=== PATIENT | female | born 1935 | race Caucasian/White ===

== ENCOUNTER → 2016-10-30 | Outpatient (CLI) | payer MEDICARE, OTHER ==
[~2016-10-30] MED LIST: ALAW0.02 OU; AMIT25TA PO; BREO1INH INH; CALC-170 PO; CENTTAB47 PO; CLAR10CA3 PO; CLAR1TAB2 PO; ECOT81TA5 PO; LOSA100T8 PO; METO1TAB32 PO; OMEP40CA2 PO; PILO7.5T3 PO; SIMV40TA2 PO; SYST0.4D2 OU
--- NOTE | 2016-10-30 10:07 | REP ---
CAROTID DUPLEX ULTRASOUND: 10/30/2016 COMPARISON. 08/18/2011 CLINICAL HISTORY: Carotid stenosis. Standard duplex techniques were utilized to evaluate the carotid systems bilaterally. There is only minimal intimal thickening in the right common carotid artery and some anterior and posterior plaque at the bulb and into the proximal ICA and ECA noted, but mild. The left common carotid also shows some intimal thickening with anterior and posterior plaque at the bulb and extending into the ICA and ECA with both calcific and soft plaque noted. Peak Velocities: RIGHT LEFT CCA systolic 0.86 0.85 m/s ICA systolic 0.95 0.60 m/s ICA diastolic 0.25 0.18 m/s ECA systolic 1.05 0.94 m/s IC/CC ratio 1.10 0.70. Cranial direction of flow is seen in both vertebral arteries. The Doppler waveform analysis shows no significant spectral broadening or filling in of the systolic window. IMPRESSION: 1. Bilateral moderate carotid disease, less than 50% stenosis in the proximal right and left ICA. Soft and calcific plaque identified at the bulb, proximal ICA. Significant progression. No hemodynamically significant or flow restricting lesion. 2. Cranial direction of flow vertebral arteries. Signed by Pasquale Rodriguez MD 10/30/2016 03:50 P
== END ==
LOC: M RAD 08:22
PROVIDERS: ATTEND Surgery
DX: I65.23 Occlusion and stenosis of bilateral carotid arteries (principal)

== ENCOUNTER 2016-11-05 10:21 | Outpatient (CLI) | payer MEDICARE, OTHER ==
[~2016-11-05] VITALS: Ht 167.6 cm; Wt 76.2 kg
[~2016-11-05 10:21] MED LIST changes: +NS 1,000 ML IV ONE
[2016-11-05] MEDS ORDERED: PROPOFOL 200 MG/20 ML VIAL As Ordered ONE ×2 (11:41→12:06)
[2016-11-05] MEDS ORDERED: LIDOCAINE 2% INJ 100 MG/5 ML SDV (FOR ANES.) As Ordered ONE (11:41)
--- NOTE | 2016-11-05 12:11 | ROOR ---
Patient Name: Leona Veronica Procedure Date: 11/05/2016 11:38 AM Date of : 1935 Age: 81 Room: [facility] Gender: Female Note Status: Finalized Procedure: Colonoscopy Indications: High risk colon cancer surveillance: Personal history of colonic polyps Providers: South Malave Jr, MD Referring MD: CANDICE HUTCHISON MD Requesting Provider: Medicines: Propofol per Anesthesia Complications: No immediate complications. Procedure: Pre-Anesthesia Assessment: - Prior to the procedure, a History and Physical was performed, and patient medications and allergies were reviewed. The patient is competent. The risks and benefits of the procedure and the sedation options and risks were discussed with the patient. All questions were answered and informed consent was obtained. Patient identification and proposed procedure were verified by the physician and the nurse in the pre-procedure area and in the procedure room. Mental Status Examination: alert and oriented. Airway Examination: normal oropharyngeal airway and neck mobility. Respiratory Examination: clear to auscultation. CV Examination: normal. ASA Grade Assessment: II - A patient with mild systemic disease. After reviewing the risks and benefits, the patient was deemed in satisfactory condition to undergo the procedure. The anesthesia plan was to use moderate sedation / analgesia (conscious sedation). Immediately prior to administration of medications, the patient was re-assessed for adequacy to receive sedatives. The heart rate, respiratory rate, oxygen saturations, blood pressure, adequacy of pulmonary ventilation, and response to care were monitored throughout the procedure. The physical status of the patient was re-assessed after the procedure. The Colonoscope was introduced through the anus and advanced to the cecum, identified by appendiceal orifice and ileocecal valve. The colonoscopy was performed without difficulty. The patient tolerated the procedure well. The quality of the bowel preparation was fair. Findings: The perianal exam findings include non-thrombosed external hemorrhoids and non-thrombosed internal hemorrhoids. Many small and large-mouthed diverticula were found in the sigmoid colon. Three sessile polyps were found in the sigmoid colon, descending colon and transverse colon. The polyps were small in size. The rectum, recto-sigmoid colon, ascending colon and cecum appeared normal. Impression: - Preparation of the colon was fair. - Non-thrombosed external hemorrhoids and non-thrombosed internal hemorrhoids found on perianal exam. - Diverticulosis in the sigmoid colon. - Three small polyps in the sigmoid colon, in the descending colon and in the transverse colon. - The rectum, recto-sigmoid colon, ascending colon and cecum are normal. - No specimens collected. Recommendation: - Discharge patient to home (ambulatory). - Repeat colonoscopy in 5 years for surveillance. South Malave MD South Malave Jr, MD 11/05/2016 12:11:11 PM This report has been signed electronically. Number of Addenda: 0 Note Initiated On: 11/05/2016 11:38 AM Estimated Blood Loss: Estimated blood loss: none.
[2016-11-05 12:35] VITALS: BP 135/67
== END 2016-11-05 12:51 | disposition home or self-care (01) ==
LOC: M OPP 10:21
PROVIDERS: ATTEND Surgery
DX: Z12.11 Encounter for screening for malignant neoplasm of colon (principal); Z86.010 Personal history of colon polyps; D12.5 Benign neoplasm of sigmoid colon; D12.4 Benign neoplasm of descending colon; D12.3 Benign neoplasm of transverse colon; K64.4 Residual hemorrhoidal skin tags; K64.8 Other hemorrhoids; K57.30 Diverticulosis of large intestine without perforation or abscess without bleeding; I10 Essential (primary) hypertension; E78.5 Hyperlipidemia, unspecified; M35.00 Sjogren syndrome, unspecified; R21 Rash and other nonspecific skin eruption; J45.909 Unspecified asthma, uncomplicated; M19.90 Unspecified osteoarthritis, unspecified site; I65.23 Occlusion and stenosis of bilateral carotid arteries; G47.00 Insomnia, unspecified; Z96.652 Presence of left artificial knee joint; Z79.899 Other long term (current) drug therapy; Z80.0 Family history of malignant neoplasm of digestive organs; Z80.52 Family history of malignant neoplasm of bladder; Z80.1 Family history of malignant neoplasm of trachea, bronchus and lung; Z80.42 Family history of malignant neoplasm of prostate

== ENCOUNTER → 2019-10-06 | Outpatient (CLI) | payer MEDICARE, OTHER ==
[~2019-10-06] MED LIST changes: -CALC-170 PO; +CALC1TAB27 PO; -NS 1,000 ML IV ONE; -OMEP40CA2 PO; +OMEP40CA97 PO; -SIMV40TA2 PO; +SIMV40TA20 PO
--- NOTE | 2019-10-13 15:14 | REP ---
BILATERAL CAROTID DUPLEX ULTRASOUND Delay in reporting results from hospital computer malfunction from malware. FINDINGS: There is moderate atheromatous plaque in the bulbs bilaterally. PEAK FLOW VELOCITY ANALYSIS RIGHT LEFT Peak ICA velocity 83.8 cm/s 75.1 cm/s Diastolic ICA velocity 20.6 cm/s 18.6 cm/s ICA/CCA ratio 0.87 0.93 Peak ECA flow velocity 101.4 cm/s 82.6 cm/s Peak CCA flow velocity 96.3 cm/s 80.8 cm/s Peak flow velocities are normal bilaterally. There is no significant stenosis on the right or the left. There is antegrade flow in the vertebral arteries bilaterally. MTDD
== END ==
LOC: M RAD 13:21
PROVIDERS: ATTEND Internal Medicine
DX: I65.8 Occlusion and stenosis of other precerebral arteries (principal)

== ENCOUNTER 2021-06-24 17:43 | Inpatient (IN) | payer MEDICARE, OTHER ==
[~2021-06-24] VITALS: Ht 167.6 cm; Wt 66.5 kg
[~2021-06-24 17:43] MED LIST changes: -AMIT25TA PO; +AMIT25TA17 PO; +OMEP40CA4 PO; -OMEP40CA97 PO
[2021-06-24] MEDS ORDERED: ACETAMINOPHEN 650 MG SUPP PR ONE (18:10)
[2021-06-24 19:18] LABS: ALBUMIN 2.7 GM/DL (3.2-5.2); BILIRUBIN,DIRECT 0.1 MG/DL (0.0-0.2); BILIRUBIN,TOTAL 0.3 MG/DL (0.2-1.0); CREATININE FOR GFR 1.05 MG/DL (0.55-1.30); POTASSIUM SERUM 2.9 MEQ/L (3.5-5.1); TOTAL PROTEIN 6.3 GM/DL (6.4-8.2)
[2021-06-24 19:32] LABS: BASO % 0.1 % (0.0-1.0); EOS % 0.3 % (0.0-3.0); HEMATOCRIT 31.2 % (36.0-47.0); HEMOGLOBIN 10.7 g/dl (12.0-15.5); LYMPH # 0.4 10^3/uL (1.5-5.0); LYMPH % 4.2 % (24.0-44.0); MEAN CORPUSCULAR HEMOGLOBIN 30.7 pg (27.0-33.0); MEAN CORPUSCULAR HGB CONC 34.3 g/dl (32.0-36.5); MEAN CORPUSCULAR VOLUME 89.4 fl (80.0-96.0); MONO # 0.7 10^3/uL (0.0-0.8); MONO % 7.5 % (2.0-8.0); NEUTROPHILS # 8.1 10^3/uL (1.5-8.5); NEUTROPHILS % 87.4 % (36.0-66.0); PLATELET COUNT, AUTOMATED 188 10^3/uL (150-450); RED BLOOD COUNT 3.49 10^6/uL (4.00-5.40); WHITE BLOOD COUNT 9.3 10^3/uL (4.0-10.0)
[2021-06-24] MEDS ORDERED: IBUPROFEN 600MG TAB PO ONE (21:00)
[2021-06-24] MEDS ORDERED: ISOVUE-370 76% 100ML VIAL As Ordered ONE (21:49)
[2021-06-24] MEDS ORDERED: cefTRIAXone SOD 1 GM in D5W MINI-BAG PLUS 50 ML IV ONE (23:30)
[2021-06-24] MEDS ORDERED: NS 1,000 ML IV SCH (23:35)
[2021-06-24] MEDS ORDERED: ACETAMINOPHEN *IV* 1,000 MG in IV 1 EA IV ONE (23:35)
[2021-06-24] MEDS ORDERED: MAALOX 30 ML SUSP *UDC PO PRN (23:35)
[2021-06-24] MEDS ORDERED: MOM 30ML SUSPENSION UDC PO PRN (23:35)
[2021-06-24] MEDS ORDERED: IBUPROFEN 600MG TAB PO PRN (23:50)
[2021-06-25] VITALS (17 sets, daily range): BP systolic 88–140; BP diastolic 41–65; O2SAT 93–98
[2021-06-25 00:52] LABS: INR 0.99; PROTHROMBIN TIME 13.5 SECONDS (12.7-14.5)
[2021-06-25 00:53] LABS: PARTIAL THROMBOPLASTIN TIME 32.2 SECONDS (25.9-37.0)
[2021-06-25] MEDS: KCL 40MEQ in NS 1000ML 1,000 ML IV SCH ×2 (01:43→10:18)
[2021-06-25] MEDS ORDERED: NS 1,000 ML IV ONE (03:35)
[2021-06-25 05:07] LABS: HEMATOCRIT 36.2 % (36.0-47.0); HEMOGLOBIN 12.4 g/dl (12.0-15.5); MEAN CORPUSCULAR HGB CONC 34.3 g/dl (32.0-36.5); MEAN CORPUSCULAR VOLUME 90.5 fl (80.0-96.0); PLATELET COUNT, AUTOMATED 219 10^3/uL (150-450); WHITE BLOOD COUNT 12.1 10^3/uL (4.0-10.0)
[2021-06-25 05:29] LABS: CALCIUM LEVEL 8.1 MG/DL (8.8-10.2); CREATININE FOR GFR 1.17 MG/DL (0.55-1.30); GLOMERULAR FILTRATION RATE 46.8 (>32); MAGNESIUM LEVEL 2.1 MG/DL (1.8-2.4); POTASSIUM SERUM 3.3 MEQ/L (3.5-5.1)
[2021-06-25] MEDS: OSELTAMIVIR PHOSPHATE 30MG CAPSULE PO SCH ×2 (08:00→20:34)
[2021-06-25] MEDS ORDERED: OSELTAMIVIR PHOSPHATE 75 MG CAP (TAMIFLU) PO SCH (09:00)
[2021-06-25] MEDS ORDERED: LOSA100T5 PO (09:22)
[2021-06-25] MEDS ORDERED: ACET650T15 PO (09:22)
[2021-06-25] MEDS ORDERED: SIMV20TA22 PO (09:22)
[2021-06-25] MEDS ORDERED: REFR0.5D8 OU (09:22)
[2021-06-25] MEDS ORDERED: D200CAP2 PO (09:22)
[2021-06-25] MEDS ORDERED: POTA10TA17 PO (09:22)
[2021-06-25] MEDS ORDERED: OMEP-173 PO (09:22)
[2021-06-25] MEDS ORDERED: CALC-211 PO (09:22)
[2021-06-25] MEDS ORDERED: SALA1TAB PO (09:22)
[2021-06-25] MEDS ORDERED: CENT1TAB PO (09:22)
[2021-06-25] MEDS ORDERED: PRED25TA PO (09:22)
[2021-06-25] MEDS ORDERED: HOME MED LIST COMPLETE! XX SCH (09:25)
[2021-06-25] MEDS: ENOXAPARIN 40MG/0.4ML SYRINGE (J1650 PER 10MG) SC SCH (10:18)
[2021-06-25] MEDS: ACETAMINOPHEN TAB 650MG DOSE (2X325MG) PO PRN (15:53)
[2021-06-25] MEDS: ADVAIR HFA 115/21MCG INHALER INH SCH ×2 (18:13→19:33)
[2021-06-25] MEDS: SIMVASTATIN 20 MG TAB PO SCH (20:34)
[2021-06-25] MEDS: cefTRIAXone SOD 1 GM in D5W MINI-BAG PLUS 50 ML IV SCH (20:34)
[2021-06-25] MEDS: ASPIRIN 81MG ENTERIC TABLET PO SCH (20:34)
[2021-06-26] VITALS (8 sets, daily range): BP systolic 119–130; BP diastolic 59–69; O2SAT 92–96
[2021-06-26] MEDS: ACETAMINOPHEN TAB 650MG DOSE (2X325MG) PO PRN ×3 (02:44→16:16)
[2021-06-26 05:13] LABS: HEMATOCRIT 29.2 % (36.0-47.0); MEAN CORPUSCULAR HEMOGLOBIN 29.8 pg (27.0-33.0); MEAN CORPUSCULAR HGB CONC 34.2 g/dl (32.0-36.5); MEAN CORPUSCULAR VOLUME 86.9 fl (80.0-96.0); PLATELET COUNT, AUTOMATED 181 10^3/uL (150-450); RED BLOOD COUNT 3.36 10^6/uL (4.00-5.40); WHITE BLOOD COUNT 11.7 10^3/uL (4.0-10.0)
[2021-06-26 05:30] LABS: BLOOD UREA NITROGEN 15 MG/DL (7-18); CALCIUM LEVEL 7.5 MG/DL (8.8-10.2); CARBON DIOXIDE LEVEL 25 MEQ/L (21-32); CHLORIDE LEVEL 109 MEQ/L (98-107); CREATININE FOR GFR 0.89 MG/DL (0.55-1.30); GLOMERULAR FILTRATION RATE > 60.0 (>32); GLUCOSE, FASTING 98 MG/DL (70-100); MAGNESIUM LEVEL 1.7 MG/DL (1.8-2.4); POTASSIUM SERUM 3.1 MEQ/L (3.5-5.1); SODIUM LEVEL 140 MEQ/L (136-145)
[2021-06-26] MEDS ORDERED: MAG SULF 1GM/100ML (MAG RUN) 1 GM in IV 1 EA IV ONE (06:50)
[2021-06-26] MEDS ORDERED: POTASSIUM CHLORIDE 10MEQ SR TABLET PO ONE (06:50)
[2021-06-26] MEDS: ADVAIR HFA 115/21MCG INHALER INH SCH ×2 (07:38→19:14)
[2021-06-26] MEDS: METOPROLOL SUCC *XL* 25MG TAB (TopROL *XL*) PO SCH (08:46)
[2021-06-26] MEDS: ENOXAPARIN 40MG/0.4ML SYRINGE (J1650 PER 10MG) SC SCH (08:52)
[2021-06-26] MEDS: OMEPRAZOLE 20MG CAP PO SCH (08:52)
[2021-06-26] MEDS: LORATADINE 10 MG TAB PO SCH (08:52)
[2021-06-26] MEDS: OSELTAMIVIR PHOSPHATE 30MG CAPSULE PO SCH ×2 (08:52→20:06)
[2021-06-26] MEDS: ASPIRIN 81MG ENTERIC TABLET PO SCH (20:06)
[2021-06-26] MEDS: SIMVASTATIN 20 MG TAB PO SCH (20:06)
[2021-06-26] MEDS: cefTRIAXone SOD 1 GM in D5W MINI-BAG PLUS 50 ML IV SCH (20:06)
[2021-06-27] MEDS: ACETAMINOPHEN TAB 650MG DOSE (2X325MG) PO PRN (01:20)
[2021-06-27 04:00] VITALS: BP 128/61
[2021-06-27 05:13] LABS: HEMATOCRIT 30.5 % (36.0-47.0); HEMOGLOBIN 10.4 g/dl (12.0-15.5); MEAN CORPUSCULAR HEMOGLOBIN 30.5 pg (27.0-33.0); MEAN CORPUSCULAR HGB CONC 34.1 g/dl (32.0-36.5); MEAN CORPUSCULAR VOLUME 89.4 fl (80.0-96.0); PLATELET COUNT, AUTOMATED 193 10^3/uL (150-450); RED BLOOD COUNT 3.41 10^6/uL (4.00-5.40); WHITE BLOOD COUNT 6.5 10^3/uL (4.0-10.0)
[2021-06-27 05:38] LABS: BLOOD UREA NITROGEN 8 MG/DL (7-18); CALCIUM LEVEL 7.6 MG/DL (8.8-10.2); CARBON DIOXIDE LEVEL 26 MEQ/L (21-32); CHLORIDE LEVEL 110 MEQ/L (98-107); CREATININE FOR GFR 0.74 MG/DL (0.55-1.30); GLOMERULAR FILTRATION RATE > 60.0 (>32); GLUCOSE, FASTING 96 MG/DL (70-100); POTASSIUM SERUM 3.3 MEQ/L (3.5-5.1); SODIUM LEVEL 140 MEQ/L (136-145)
[2021-06-27] MEDS ORDERED: POTASSIUM CHLORIDE 10MEQ SR TABLET PO ONE (06:55)
[2021-06-27] MEDS ORDERED: OSEL30CA PO ×2 (06:55→13:54)
[2021-06-27] MEDS ORDERED: CEFD300C41 PO ×2 (06:55→13:54)
[2021-06-27 07:21] VITALS: BP 134/60
[2021-06-27] MEDS: ADVAIR HFA 115/21MCG INHALER INH SCH (07:47)
[2021-06-27] MEDS: LORATADINE 10 MG TAB PO SCH (08:13)
[2021-06-27] MEDS: OSELTAMIVIR PHOSPHATE 30MG CAPSULE PO SCH (08:13)
[2021-06-27] MEDS: METOPROLOL SUCC *XL* 25MG TAB (TopROL *XL*) PO SCH (08:13)
[2021-06-27] MEDS: OMEPRAZOLE 20MG CAP PO SCH (08:13)
[2021-06-27] MEDS: ENOXAPARIN 40MG/0.4ML SYRINGE (J1650 PER 10MG) SC SCH (08:14)
[2021-06-27] MEDS ORDERED: predniSONE 2.5 MG TAB PO SCH (09:00)
[2021-06-27] MEDS ORDERED: PILOCARPINE 5 MG PO SCH (09:00)
== END 2021-06-27 11:01 | disposition home health service (06) | DRG 689 ==
LOC: M ED 17:43 → M ED INP 23:35 → M PCU 06-25 01:22
PROVIDERS: ADMIT Internal Medicine; ATTEND Internal Medicine
DX: N39.0 Urinary tract infection, site not specified (principal); G93.41 Metabolic encephalopathy; J45.909 Unspecified asthma, uncomplicated; E78.5 Hyperlipidemia, unspecified; I10 Essential (primary) hypertension; M35.00 Sjogren syndrome, unspecified; E87.6 Hypokalemia; R50.9 Fever, unspecified; J09.X2 Influenza due to identified novel influenza A virus with other respiratory manifestations; Z96.652 Presence of left artificial knee joint; Z90.79 Acquired absence of other genital organ(s); Z90.49 Acquired absence of other specified parts of digestive tract; K21.9 Gastro-esophageal reflux disease without esophagitis; Z20.822 Contact with and (suspected) exposure to COVID-19; Z79.82 Long term (current) use of aspirin; Z79.899 Other long term (current) drug therapy; Z88.2 Allergy status to sulfonamides; Z88.1 Allergy status to other antibiotic agents; M32.9 Systemic lupus erythematosus, unspecified; B96.20 Unspecified Escherichia coli [E. coli] as the cause of diseases classified elsewhere; E83.42 Hypomagnesemia; Z66 Do not resuscitate

== ENCOUNTER → 2021-08-01 | Outpatient (CLI) | payer MEDICARE, OTHER ==
[~2021-08-01] MED LIST changes: +ACET650T15 PO; +CALC-211 PO; +CEFD300C41 PO; +CENT1TAB PO; +D200CAP2 PO; +LOSA100T5 PO; +OMEP-173 PO; +OSEL30CA PO; +POTA10TA17 PO; +PRED25TA PO; +REFR0.5D8 OU; +SALA1TAB PO; +SIMV20TA22 PO
[2021-08-01 13:19] LABS: BASO % 0.2 % (0.0-1.0); EOS # 0.2 10^3/uL (0.0-0.5); EOS % 2.2 % (0.0-3.0); HEMOGLOBIN 12.5 g/dl (12.0-15.5); LYMPH # 1.2 10^3/uL (1.5-5.0); LYMPH % 13.3 % (24.0-44.0); MEAN CORPUSCULAR HEMOGLOBIN 31.1 pg (27.0-33.0); MEAN CORPUSCULAR HGB CONC 33.8 g/dl (32.0-36.5); MONO # 1.2 10^3/uL (0.0-0.8); MONO % 13.7 % (2.0-8.0); NEUTROPHILS # 6.3 10^3/uL (1.5-8.5); PLATELET COUNT, AUTOMATED 334 10^3/uL (150-450); RED BLOOD COUNT 4.02 10^6/uL (4.00-5.40)
== END ==
LOC: M PLALAB 10:58
PROVIDERS: ATTEND Internal Medicine
DX: M35.01 Sjogren syndrome with keratoconjunctivitis (principal)

== ENCOUNTER → 2022-09-29 | Outpatient (CLI) | payer MEDICARE, OTHER ==
[~2022-09-29] MED LIST changes: -AMIT25TA17 PO; +AMIT25TA19 PO; +POTA-150 PO; -POTA10TA17 PO
[2022-09-29 16:54] LABS: ALBUMIN 3.3 G/DL (3.2-5.2); ALKALINE PHOSPHATASE 91 U/L (46-116); ALT/SGPT 15 U/L (7.0-40); AST/SGOT 15 U/L (<34); BILIRUBIN,TOTAL 0.7 MG/DL (0.3-1.2); BLOOD UREA NITROGEN 18 MG/DL (9-23); CALCIUM LEVEL 9.1 MG/DL (8.3-10.6); CARBON DIOXIDE LEVEL 31 MMOL/L (20-31); CHLORIDE LEVEL 102 MMOL/L (98-107); GLOMERULAR FILTRATION RATE > 60.0 (>32); GLUCOSE, FASTING 97 MG/DL (74-106); POTASSIUM SERUM 3.3 MMOL/L (3.5-5.1); SODIUM LEVEL 141 MMOL/L (136-145); TOTAL PROTEIN 6.9 G/DL (5.7-8.2)
[2022-09-29 17:03] LABS: BASO % 0.1 % (0.0-1.0); EOS # 0.2 10^3/uL (0.0-0.5); EOS % 2.7 % (0.0-3.0); HEMATOCRIT 36.1 % (36.0-47.0); LYMPH # 1.5 10^3/uL (1.5-5.0); LYMPH % 19.6 % (24.0-44.0); MEAN CORPUSCULAR HEMOGLOBIN 32.1 pg (27.0-33.0); MEAN CORPUSCULAR HGB CONC 33.2 g/dl (32.0-36.5); MEAN CORPUSCULAR VOLUME 96.5 fl (80.0-96.0); MONO # 1.2 10^3/uL (0.0-0.8); MONO % 15.8 % (2.0-8.0); NEUTROPHILS # 4.6 10^3/uL (1.5-8.5); NEUTROPHILS % 61.5 % (36.0-66.0); PLATELET COUNT, AUTOMATED 245 10^3/uL (150-450); RED BLOOD COUNT 3.74 10^6/uL (4.00-5.40); WHITE BLOOD COUNT 7.4 10^3/uL (4.0-10.0)
== END ==
LOC: M WUC 11:54
PROVIDERS: ATTEND Internal Medicine
DX: M32.9 Systemic lupus erythematosus, unspecified (principal)